=== PATIENT | male | born 1935 | race African-American/Black ===

== ENCOUNTER 2016-05-17 08:34 | Emergency (ER) | payer MEDICARE, OTHER ==
[~2016-05-17] VITALS: Ht 180.3 cm; Wt 65.9 kg
[~2016-05-17 08:34] MED LIST: ASPI-1093 PO; CYAN1TAB51 PO; MULT-1192
[2016-05-17] MEDS ORDERED: FOLI1 PO (08:51)
[2016-05-17] MEDS ORDERED: MIDO2.5 PO (08:51)
[2016-05-17] MEDS ORDERED: DOCU250C91 PO (08:51)
[2016-05-17] MEDS ORDERED: CINA30 PO (08:51)
[2016-05-17] MEDS ORDERED: FOLI1TAB35 PO (08:51)
[2016-05-17] MEDS ORDERED: SODIUM CHLORIDE 0.9% 500 ML IV ONE ×3 (09:00→12:45)
[2016-05-17] MEDS ORDERED: MIDODRINE HCL 5 MG TABLET PO ONE (09:00)
[2016-05-17 09:29] LABS: BASOPHILS % (AUTO) 0.3 % (0.0-2.0); EOSINOPHILS % (AUTO) 1.9 % (1.0-6.0); HEMATOCRIT 39.1 % (41-53); HEMOGLOBIN 12.6 g/dL (13.5-17.5); LYMPHOCYTES # (AUTO) 1.5 K/uL (1.0-4.8); LYMPHOCYTES % (AUTO) 24.2 % (22.0-44.0); MEAN CORPUSCULAR HEMOGLOBIN 31.3 pg (26.0-34.0); MEAN CORPUSCULAR HGB CONC 32.3 G/dL (31.0-37.0); MEAN CORPUSCULAR VOLUME 97 fL (80-100); MONOCYTES # (AUTO) 0.5 K/uL (0.1-1.0); MONOCYTES % (AUTO) 7.9 % (2.0-9.0); NEUTROPHILS # (AUTO) 4.1 K/uL (1.8-7.7); NEUTROPHILS % (AUTO) 65.7 % (40.0-70.0); PLATELET COUNT (AUTO) 191 K/uL (150-450); RED BLOOD CELL COUNT(AUTO) 4.04 MIL/uL (4.50-5.90); WHITE BLOOD COUNT (AUTO) 6.3 K/uL (4.5-11.0)
[2016-05-17 09:36] LABS: ANION GAP 17 mmol/L (8-16); CARBON DIOXIDE 29 mmol/L (22-29); CHLORIDE 94 mmol/L (98-107); CREATININE 6.81 mg/dL (0.60-1.30); GLOMERULAR FILTR. RATE CALC 10 mL/min (>60); SODIUM SERUM 140 mmol/L (136-145); UREA NITROGEN, BLOOD 24 mg/dL (7-18)
[2016-05-17 09:43] LABS: ALANINE AMINOTRANSFERASE 18 U/L (12-78); ALBUMIN 4.2 g/dL (3.4-5.0); ASPARTATE AMINOTRANSFERASE 16 U/L (15-37); CREATINE KINASE, TOTAL 47 U/L (39-308); TOTAL PROTEIN, SERUM 8.8 g/dL (6.4-8.2)
[2016-05-17] MEDS ORDERED: ALBUMIN HUMAN 25%-50GM/200ML 200 ML IV ONE (12:45)
[2016-05-17 14:40] VITALS: BP 107/55
[2016-07-27] MEDS ORDERED: CHOL20004 PO (12:00)
== END 2016-05-17 15:36 | disposition home or self-care (01) ==
LOC: EDUNIT# 08:34 → EMS 08:39
DX: E86.9 Volume depletion, unspecified (principal); E11.9 Type 2 diabetes mellitus without complications
CPT/HCPCS: 36415; 71010; 80053; 82550; 84484; 85025; 93005; 96361; 96365; 99291; J7040; P9046

== ENCOUNTER 2016-07-24 15:48 | Inpatient (IN) | payer MEDICARE, OTHER ==
[~2016-07-24] VITALS: Ht 167.6 cm; Wt 58.4 kg
[~2016-07-24 15:48] MED LIST changes: -ASPI-1093 PO; +CINA30 PO; -CYAN1TAB51 PO; +DOCU250C91 PO; +FOLI1 PO; +FOLI1TAB35 PO; +MIDO2.5 PO; -MULT-1192
[2016-07-24 16:01] LABS: GLUCOSE,POINT OF CARE 147 MG/DL (70-110)
[2016-07-24 16:39] LABS: BASOPHILS % (AUTO) 0.6 % (0.0-2.0); EOSINOPHILS % (AUTO) 2.3 % (1.0-6.0); HEMATOCRIT 33.2 % (41-53); HEMOGLOBIN 10.8 g/dL (13.5-17.5); LYMPHOCYTES # (AUTO) 1.4 K/uL (1.0-4.8); LYMPHOCYTES % (AUTO) 22.1 % (22.0-44.0); MEAN CORPUSCULAR HEMOGLOBIN 31.6 pg (26.0-34.0); MEAN CORPUSCULAR HGB CONC 32.5 G/dL (31.0-37.0); MEAN CORPUSCULAR VOLUME 97 fL (80-100); MONOCYTES # (AUTO) 0.6 K/uL (0.1-1.0); MONOCYTES % (AUTO) 9.9 % (2.0-9.0); NEUTROPHILS % (AUTO) 65.1 % (40.0-70.0); PLATELET COUNT (AUTO) 187 K/uL (150-450); RED BLOOD CELL COUNT(AUTO) 3.41 MIL/uL (4.50-5.90); RED CELL DISTRIBUTION WIDTH 15.2 % (11.5-14.5); WHITE BLOOD COUNT (AUTO) 6.2 K/uL (4.5-11.0)
[2016-07-24 16:49] LABS: PROTHROMBIN TIME 10.7 SEC (9.4-11.6)
[2016-07-24 16:53] LABS: ANION GAP 9 mmol/L (8-16); CALCIUM, TOTAL 7.8 mg/dL (8.8-10.5); CARBON DIOXIDE 33 mmol/L (22-29); CHLORIDE 98 mmol/L (98-107); CREATININE 6.95 mg/dL (0.60-1.30); GLOMERULAR FILTR. RATE CALC 9 mL/min (>60); POTASSIUM 4.1 mmol/L (3.5-5.1); SODIUM SERUM 140 mmol/L (136-145); UREA NITROGEN, BLOOD 40 mg/dL (7-18)
[2016-07-24 16:57] LABS: TROPONIN I 0.03 ng/mL (0.00-0.05)
[2016-07-24 17:08] LABS: AMMONIA < 10 umol/L (11-32)
[2016-07-24 17:16] LABS: ALANINE AMINOTRANSFERASE 44 U/L (12-78); ALBUMIN 3.8 g/dL (3.4-5.0); ASPARTATE AMINOTRANSFERASE 40 U/L (15-37); BILIRUBIN,TOTAL 0.6 mg/dL (0.1-1.0); CREATINE KINASE MB 1.6 ng/mL (0-5); CREATINE KINASE, TOTAL 294 U/L (39-308); TOTAL PROTEIN, SERUM 7.8 g/dL (6.4-8.2)
[2016-07-24 17:26] LABS: LACTIC ACID 3.5 mmol/L (0.4-2.0)
[2016-07-24] MEDS ORDERED: SODIUM CHLORIDE 0.9% 1,000 ML IV ONE ×2 (17:45→20:00)
[2016-07-24 18:32] LABS: REFLEX LACTIC ACID? YES YES
[2016-07-24 18:55] LABS: APPEARANCE,URINE TURBID (CLEAR); GLUCOSE, URINE (UA) NEGATIVE (NEGATIVE); KETONES,URINE NEGATIVE (NEGATIVE); LEUKOCYTE ESTERASE ,URINE LARGE (NEGATIVE); OCCULT BLOOD,URINE LARGE (NEGATIVE); PH,URINE 7.5 (5.0-8.0); PROTEIN,URINE SEE CONFIRM (NEGATIVE)
[2016-07-24 18:57] LABS: ADD UA MICROSCOPIC YES
[2016-07-24] MEDS ORDERED: PIPERACILLIN/TAZO 3.375 GM/D5W 50 ML IV ONE (19:15)
[2016-07-24 19:18] LABS: WBC,URINE Full Field /HPF (0-5)
[2016-07-24 19:20] LABS: SULFOSALICYLIC ACID,URINE 3+ (Negative)
[2016-07-24] MEDS ORDERED: ACETAMINOPHEN 325 MG TABLET PO PRN ×2 (19:45→20:15)
[2016-07-24] MEDS ORDERED: ONDANSETRON HCL 4 MG/2 ML VIAL IVP PRN ×2 (19:45→20:15)
[2016-07-24] MEDS ORDERED: OxyCODONE HCL/ACETAMINOPHEN 5-325 MG TABLET PO PRN (20:15)
[2016-07-24] MEDS ORDERED: ALBUTEROL SULFATE 2.5 MG/0.5 ML NEB SOLUTION NEB PRN (20:15)
[2016-07-24] MEDS ORDERED: IPRATROPIUM BROMIDE 0.5 MG/2.5 ML NEB SOLUTION NEB PRN (20:15)
[2016-07-24] MEDS ORDERED: ZOLPIDEM TARTRATE 5 MG TABLET PO PRN (20:15)
[2016-07-24] MEDS ORDERED: BISACODYL 10 MG RECTAL RECTAL SUPPOSITORY PR PRN (20:15)
[2016-07-24] MEDS ORDERED: MAGNESIUM HYDROXIDE SUSPENSION 30 ML UDCUP PO PRN (20:15)
[2016-07-24] MEDS ORDERED: DEXTROSE 50%-WATER 25 GM/50 ML SYRINGE IVP PRN (20:30)
[2016-07-24] MEDS ORDERED: INSULIN ASPART 100 UNITS/ML SQ PRN (20:30)
[2016-07-24] MEDS: MIDODRINE HCL 2.5 MG TABLET PO SCH (22:10)
[2016-07-24] MEDS: HEPARIN SODIUM,PORCINE 5,000 UNITS/ML VIAL SQ SCH (22:10)
[2016-07-24 23:07] LABS: GLUCOSE,POINT OF CARE 108 MG/DL (70-110)
[2016-07-25] VITALS (7 sets, daily range): BP systolic 79–99; BP diastolic 43–57
[2016-07-25] MEDS: PIPERACILLIN SODIUM/TAZOBACTAM 2.25 GM in DEXTROSE 5%-WATER 50 ML IV SCH ×3 (04:06→21:16)
[2016-07-25 05:16] LABS: BASOPHILS # (AUTO) 0.03 K/uL (0.00-0.20); BASOPHILS % (AUTO) 0.5 % (0.0-2.0); EOSINOPHILS # (AUTO) 0.21 K/uL (0.00-0.70); EOSINOPHILS % (AUTO) 3.55 % (1.0-6.0); HEMATOCRIT 27.8 % (41-53); HEMOGLOBIN 9.3 g/dL (13.5-17.5); LYMPHOCYTES # (AUTO) 0.8 K/uL (1.0-4.8); MEAN CORPUSCULAR HEMOGLOBIN 32.4 pg (26.0-34.0); MEAN CORPUSCULAR HGB CONC 33.3 G/dL (31.0-37.0); MEAN CORPUSCULAR VOLUME 97 fL (80-100); MONOCYTES # (AUTO) 0.6 K/uL (0.1-1.0); MONOCYTES % (AUTO) 10.6 % (2.0-9.0); NEUTROPHILS # (AUTO) 4.3 K/uL (1.8-7.7); NEUTROPHILS % (AUTO) 71.4 % (40.0-70.0); PLATELET COUNT (AUTO) 144 K/uL (150-450); RED BLOOD CELL COUNT(AUTO) 2.85 MIL/uL (4.50-5.90); RED CELL DISTRIBUTION WIDTH 15.2 % (11.5-14.5)
[2016-07-25 05:32] LABS: GLUCOSE,POINT OF CARE 129 MG/DL (70-110)
[2016-07-25 05:41] LABS: ALBUMIN 2.9 g/dL (3.4-5.0); BILIRUBIN,TOTAL 0.8 mg/dL (0.1-1.0); CALCIUM, TOTAL 6.8 mg/dL (8.8-10.5); CHOL/HDL RATIO 2.3 (4.2-7.3); CREATININE 7.17 mg/dL (0.60-1.30); POTASSIUM 3.8 mmol/L (3.5-5.1); THYROID STIMULATING HORMONE 0.89 uIU/mL (0.36-3.74); TOTAL PROTEIN, SERUM 6.4 g/dL (6.4-8.2)
[2016-07-25] MEDS ORDERED: PNEUMOCOCCAL VACCINE POLYVALENT 0.5 ML VIAL [PPSV23] IM ONE (06:45)
[2016-07-25] MEDS ORDERED: PIPERACILLIN/TAZO 3.375 GM/D5W 50 ML IV SCH (09:00)
[2016-07-25] MEDS: CINACALCET HCL 30 MG TABLET PO SCH (09:10)
[2016-07-25] MEDS: PANTOPRAZOLE SODIUM 40 MG DR TABLET PO SCH (09:11)
[2016-07-25] MEDS: FOLIC ACID 1 MG TABLET PO SCH (09:11)
[2016-07-25] MEDS: MIDODRINE HCL 2.5 MG TABLET PO SCH ×3 (09:11→21:17)
[2016-07-25] MEDS: DOCUSATE SODIUM 250 MG CAPSULE PO SCH (09:11)
[2016-07-25] MEDS: HEPARIN SODIUM,PORCINE 5,000 UNITS/ML VIAL SQ SCH ×2 (09:11→21:18)
[2016-07-25] MEDS: ALBUMIN HUMAN 25%-25GM/100ML 100 ML IV SCH ×3 (09:14→21:17)
[2016-07-25] MEDS: EPOETIN ALFA 10,000 UNITS/ML VIAL SQ SCH (09:19)
[2016-07-25] MEDS ORDERED: SODIUM CHLORIDE 0.9% 250 ML IV ONE ×2 (16:49→21:41)
[2016-07-25 20:33] LABS: GLUCOSE,POINT OF CARE 132 MG/DL (70-110)
[2016-07-26 00:04] VITALS: BP 84/52
[2016-07-26 04:29] VITALS: BP 103/49
[2016-07-26] MEDS: PIPERACILLIN SODIUM/TAZOBACTAM 2.25 GM in DEXTROSE 5%-WATER 50 ML IV SCH ×3 (04:31→21:25)
[2016-07-26] MEDS: ALBUMIN HUMAN 25%-25GM/100ML 100 ML IV SCH ×4 (04:31→21:25)
[2016-07-26 06:09] LABS: BASOPHILS % (AUTO) 0.5 % (0.0-2.0); EOSINOPHILS % (AUTO) 8.1 % (1.0-6.0); HEMATOCRIT 26.9 % (41-53); HEMOGLOBIN 8.7 g/dL (13.5-17.5); LYMPHOCYTES # (AUTO) 0.6 K/uL (1.0-4.8); LYMPHOCYTES % (AUTO) 14.1 % (22.0-44.0); MEAN CORPUSCULAR HEMOGLOBIN 31.6 pg (26.0-34.0); MEAN CORPUSCULAR HGB CONC 32.1 G/dL (31.0-37.0); MEAN CORPUSCULAR VOLUME 98 fL (80-100); MONOCYTES # (AUTO) 0.4 K/uL (0.1-1.0); MONOCYTES % (AUTO) 8.5 % (2.0-9.0); NEUTROPHILS % (AUTO) 68.8 % (40.0-70.0); PLATELET COUNT (AUTO) 134 K/uL (150-450); RED BLOOD CELL COUNT(AUTO) 2.74 MIL/uL (4.50-5.90); RED CELL DISTRIBUTION WIDTH 15.7 % (11.5-14.5); WHITE BLOOD COUNT (AUTO) 4.3 K/uL (4.5-11.0)
[2016-07-26 06:32] LABS: CALCIUM, TOTAL 6.5 mg/dL (8.8-10.5); CREATININE 8.45 mg/dL (0.60-1.30); MAGNESIUM 1.6 mg/dL (1.80-2.40); PHOSPHORUS 2.7 mg/dL (2.5-4.9); POTASSIUM 3.7 mmol/L (3.5-5.1)
[2016-07-26 06:37] LABS: GLUCOSE,POINT OF CARE 125 MG/DL (70-110)
[2016-07-26 07:22] LABS: GLUCOSE,POINT OF CARE 122 MG/DL (70-110)
[2016-07-26 07:25] VITALS: BP 85/42
[2016-07-26] MEDS: PANTOPRAZOLE SODIUM 40 MG DR TABLET PO SCH (09:21)
[2016-07-26] MEDS: FOLIC ACID 1 MG TABLET PO SCH (09:21)
[2016-07-26] MEDS: CINACALCET HCL 30 MG TABLET PO SCH (09:21)
[2016-07-26] MEDS: DOCUSATE SODIUM 250 MG CAPSULE PO SCH (09:21)
[2016-07-26] MEDS: MIDODRINE HCL 2.5 MG TABLET PO SCH ×3 (09:22→21:25)
[2016-07-26] MEDS: HEPARIN SODIUM,PORCINE 5,000 UNITS/ML VIAL SQ SCH ×2 (09:22→21:26)
[2016-07-26 11:20] VITALS: BP 76/45
[2016-07-26] MEDS: SOD FERRIC GLUC COMPLX/SUCROSE 125 MG in SODIUM CHLORIDE 0.9% 100 ML IV SCH (12:02)
[2016-07-26] MEDS: CHOLECALCIFEROL (VIT D3) 1,000 UNITS TABLET PO SCH (12:03)
[2016-07-26 14:23] LABS: GLUCOSE,POINT OF CARE 121 MG/DL (70-110)
[2016-07-26] MEDS ORDERED: SODIUM CHLORIDE 0.9% 500 ML IV ONE ×2 (19:39→20:05)
[2016-07-26 20:18] VITALS: BP 81/38
[2016-07-26 23:58] VITALS: BP 87/47
[2016-07-27] MEDS: ALBUMIN HUMAN 25%-25GM/100ML 100 ML IV SCH ×2 (03:40→09:38)
[2016-07-27] MEDS: PIPERACILLIN SODIUM/TAZOBACTAM 2.25 GM in DEXTROSE 5%-WATER 50 ML IV SCH ×2 (03:41→12:45)
[2016-07-27 04:42] LABS: GLUCOSE,POINT OF CARE 121 MG/DL (70-110)
[2016-07-27 04:49] VITALS: BP 84/48
[2016-07-27 06:37] LABS: GLUCOSE,POINT OF CARE 127 MG/DL (70-110)
[2016-07-27 07:12] VITALS: BP 101/57
[2016-07-27] MEDS: DOCUSATE SODIUM 250 MG CAPSULE PO SCH (09:00)
[2016-07-27] MEDS: CINACALCET HCL 30 MG TABLET PO SCH (09:36)
[2016-07-27] MEDS: FOLIC ACID 1 MG TABLET PO SCH (09:38)
[2016-07-27] MEDS: PANTOPRAZOLE SODIUM 40 MG DR TABLET PO SCH (09:39)
[2016-07-27] MEDS: CHOLECALCIFEROL (VIT D3) 1,000 UNITS TABLET PO SCH (09:40)
[2016-07-27] MEDS: HEPARIN SODIUM,PORCINE 5,000 UNITS/ML VIAL SQ SCH (09:41)
[2016-07-27] MEDS: EPOETIN ALFA 10,000 UNITS/ML VIAL SQ SCH (09:41)
[2016-07-27] MEDS: MIDODRINE HCL 2.5 MG TABLET PO SCH (09:43)
[2016-07-27 11:07] VITALS: BP 100/47
[2016-07-27] MEDS: SOD FERRIC GLUC COMPLX/SUCROSE 125 MG in SODIUM CHLORIDE 0.9% 100 ML IV SCH (11:22)
[2016-07-27] MEDS ORDERED: CHOL200020 PO (12:00)
[2016-07-27] MEDS ORDERED: ASPI81TA2 PO (12:01)
[2016-07-27 12:13] LABS: GLUCOSE,POINT OF CARE 152 MG/DL (70-110)
[2016-07-27 18:12] LABS: GLUCOSE,POINT OF CARE 111 MG/DL (70-110)
== END 2016-07-27 15:25 | disposition home or self-care (01) | DRG 871 ==
LOC: EMS 15:49 → ICU 20:11 → 5N 07-25 18:30
PROVIDERS: ADMIT Internal Medicine; ATTEND Internal Medicine
PROC: 5A1D00Z (ICD-10-PCS; principal; 2016-07-26)
DX: A41.9 Sepsis, unspecified organism (principal); N18.6 End stage renal disease; E43 Unspecified severe protein-calorie malnutrition; N39.0 Urinary tract infection, site not specified; I12.0 Hypertensive chronic kidney disease with stage 5 chronic kidney disease or end stage renal disease; E11.22 Type 2 diabetes mellitus with diabetic chronic kidney disease; E11.65 Type 2 diabetes mellitus with hyperglycemia; D63.1 Anemia in chronic kidney disease; K59.00 Constipation, unspecified; E83.51 Hypocalcemia; E11.51 Type 2 diabetes mellitus with diabetic peripheral angiopathy without gangrene; Z66 Do not resuscitate; I25.10 Atherosclerotic heart disease of native coronary artery without angina pectoris; R62.7 Adult failure to thrive; Z99.2 Dependence on renal dialysis; Z79.899 Other long term (current) drug therapy; Z90.5 Acquired absence of kidney; Z89.421 Acquired absence of other right toe(s); Z89.512 Acquired absence of left leg below knee; Z68.20 Body mass index [BMI] 20.0-20.9, adult
CPT/HCPCS: 51702; 70450; 82306; 82962; 83540; 83550; 83605; 83735; 84100; 84443; 87040; 87081; 87086; 87340; 93005; 93306; 96361; 96365; 97163; 99291; J0885; J1644; J2543; J2916; J7030; J7040; J7050; J7060; P9046